=== PATIENT | male | born 1965 | race Asian ===

== ENCOUNTER 2022-07-27 12:22 | Emergency (ER) | payer BC ==
[~2022-07-27] VITALS: Ht 162.6 cm; Wt 72.6 kg
[2022-07-27] MEDS ORDERED: ONDANSETRON 4MG INJ IVP ONE (12:30)
[2022-07-27] MEDS ORDERED: KETOROLAC 30MG VIAL (30MG/ML) IVP ONE (12:30)
[2022-07-27 12:47] LABS: BASOPHILS % (AUTO) 0.5 % (0.0-5.0); EOSINOPHILS % (AUTO) 0.4 % (0.0-8.0); HEMATOCRIT 46.6 % (42-54); MEAN CORPUSCULAR HEMOGLOBIN 29.9 pg (27.0-33.0); MEAN CORPUSCULAR HGB CONC 34.1 g/dL (32.0-36.0); MEAN CORPUSCULAR VOLUME 87.6 fL (79-99); MONOCYTES % (AUTO) 6.2 % (3.0-13.0); NEUTROPHILS % (AUTO) 79.6 % (40.0-77.0); PLATELET COUNT (AUTO) 206 K/uL (130-400); RED BLOOD CELL COUNT(AUTO) 5.32 MIL/uL (4.50-6.20); RED CELL DISTRIBUTION WIDTH 12.8 % (11.0-15.5); WHITE BLOOD COUNT (AUTO) 10.2 K/uL (4.8-10.8)
[2022-07-27 12:58] LABS: CREATININE 1.5 mg/dL (0.5-1.5); POTASSIUM 4.1 mmol/L (3.5-5.1)
[2022-07-27 13:00] LABS: APPEARANCE,URINE CLEAR (CLEAR); BILIRUBIN,URINE NEGATIVE (NEGATIVE); COLOR,URINE YELLOW (YELLOW); GLUCOSE, URINE (UA) NEGATIVE (NEGATIVE); KETONES,URINE NEGATIVE (NEGATIVE); LEUKOCYTE ESTERASE ,URINE NEGATIVE (NEGATIVE); NITRATE,URINE NEGATIVE (NEGATIVE); OCCULT BLOOD,URINE MODERATE (NEGATIVE); PROTEIN,URINE TRACE mg/dL (NEGATIVE); UROBILINOGEN,URINE 0.2 mg/dL (0.2-1.0)
[2022-07-27 13:02] LABS: CRP QUANTITATIVE 5.3 mg/L (0.00-9.0)
[2022-07-27 13:24] LABS: BACTERIA,URINE Rare /HPF (None Seen); MUCUS,URINE Few LPF (None Seen); RBC,URINE >100 /HPF (0-1); SQUAMOUS EPITHELIAL CELL,UR 0-2 /HPF (0-2); WBC,URINE None Seen /HPF (0-1)
[2022-07-27] MEDS ORDERED: TAMSULOSIN HCL 0.4 MG CAP.ER.24H PO SCH (14:00)
[2022-07-27 14:08] VITALS: BP 143/88
[2022-07-27] MEDS ORDERED: KETO10 PO (14:41)
[2022-07-27] MEDS ORDERED: CEPH500B PO (14:41)
[2022-07-27] MEDS ORDERED: ONDA4TAB10 PO (14:41)
[2022-07-27] MEDS ORDERED: TAMS-1 PO (14:42)
[2022-07-27] MEDS ORDERED: CEFTRIAXONE 1G VIAL IVP ONE (15:00)
== END 2022-07-27 15:01 | disposition home or self-care (01) ==
LOC: EDH 12:22
DX: N13.2 Hydronephrosis with renal and ureteral calculous obstruction (principal); I10 Essential (primary) hypertension
CPT/HCPCS: 99284; 74176; 96374; 96375; 84484; 80053; 85025; 86140; 81001; 36415; J0696; J2405; J1885